=== PATIENT | male | born 1960 | race Caucasian/White ===

== ENCOUNTER 2016-10-21 04:09 | Emergency (ER) | payer OTHER ==
[~2016-10-21] VITALS: Ht 160 cm; Wt 48.0 kg
[~2016-10-21 04:09] MED LIST: TRAMADOL HCL50 MG PO; ULTRAM50 MG PO
[2016-10-21 05:19] LABS: CHLORIDE 103 mEq/L (99-109); POTASSIUM 3.5 mEq/L (3.7-5.4); SODIUM 141 mEq/L (136-147)
[2016-10-21 05:22] LABS: GLUCOSE 184 mg/dL (70-99)
[2016-10-21 05:23] LABS: ANION GAP 15 MEQ/L (2-14)
[2016-10-21 05:24] LABS: TOTAL BILIRUBIN 0.3 mg/dL (0.0-1.0)
[2016-10-21 05:25] LABS: ALKALINE PHOSPHATASE 90 IU/L (3-129); SERUM ETHYL ALCOHOL 227 mg/dL
[2016-10-21 05:26] LABS: GFR ESTIMATE (CALCULATED) > 59 mL/min/; TROP-I INTERPRETATION NEGATIVE; TROPONIN-I 0.01 ng/mL (0.0-0.30)
[2016-10-21 05:27] LABS: UREA NITROGEN (BUN) 4 mg/dL (9-23)
[2016-10-21 05:29] LABS: LIPASE 50 U/L (1.0-51.0)
[2016-10-21 05:32] LABS: HEMATOCRIT 40.1 % (38.0-50.0); MCH 36.2 PG (29.0-34.0); MCHC 35.2 G/DL (30.0-36.0); MCV 102.8 FL (86-99); MEAN PLAT.VOLUME 10.4 uM^3 (9.0-12.4); PLATELET COUNT 100 K/uL (156-360); RBC DIS.WIDTH-CV 13.1 % (11.8-14.6); RBC DIS.WIDTH-SD 49.2 % (39-53); WHITE BLOOD COUNT 8.1 K/uL (4.1-10.2)
[2016-10-21] MEDS ORDERED: VENTOLIN HFA18 GM IH (08:58)
[2016-10-21] MEDS ORDERED: LEVAQUIN750 MG PO (08:58)
[2016-10-21 09:27] VITALS: BP 113/71
[2016-10-21 09:49] LABS: ANION GAP 22 MEQ/L (2-14); CHLORIDE 104 mEq/L (99-109); CREATININE 0.6 mg/dL (0.6-1.3); GLUCOSE 116 mg/dL (70-99); ISTAT DEVICE 359068; POTASSIUM 3.2 mEq/L (3.7-5.4); SODIUM 142 mEq/L (136-147); UREA NITROGEN (BUN) < 3 mg/dL (9-23)
== END 2016-10-21 09:28 | disposition left against medical advice (07) ==
LOC: EME 04:09
PROVIDERS: Emergency Medicine
DX: J18.9 Pneumonia, unspecified organism (principal); R65.10 Systemic inflammatory response syndrome (SIRS) of non-infectious origin without acute organ dysfunction; F10.229 Alcohol dependence with intoxication, unspecified; E86.0 Dehydration; R00.0 Tachycardia, unspecified; D69.6 Thrombocytopenia, unspecified; R10.12 Left upper quadrant pain; Y90.7 Blood alcohol level of 200-239 mg/100 ml; F17.200 Nicotine dependence, unspecified, uncomplicated; Z53.29 Procedure and treatment not carried out because of patient's decision for other reasons
CPT/HCPCS: 71010; 74177; 80047; 80053; 82140; 83605; 83690; 84484; 84999; 85027; 87040; 93005; 94640; 99281; 99285; G0480; J7030; S0028